=== PATIENT | female | born 1975 | race Caucasian/White ===

== ENCOUNTER → 2023-10-14 14:34 | Outpatient (REF) | payer OTHER, SELFPAY | LOC: WDC 14:34 | PROVIDERS: ATTENDING PHYSICIAN Nurse Practitioner Family | DX: Z12.31 Encounter for screening mammogram for malignant neoplasm of breast (principal); R92.8 Other abnormal and inconclusive findings on diagnostic imaging of breast | CPT/HCPCS: 76642; 77063; 77067 ==

== ENCOUNTER → 2023-11-29 16:34 | Outpatient (REF) | payer OTHER, SELFPAY | LOC: RAD 16:34 | PROVIDERS: ATTENDING PHYSICIAN Nurse Practitioner Family | DX: M25.531 Pain in right wrist (principal); M79.674 Pain in right toe(s) | CPT/HCPCS: 73110; 73660 ==

== ENCOUNTER → 2024-10-17 18:59 | Outpatient (REF) | payer OTHER, SELFPAY | LOC: WDC 18:59 | PROVIDERS: ATTENDING PHYSICIAN Obstetrics & Gynecology Obstetrics; FAMILY PHYSICIAN Nurse Practitioner Family | DX: Z12.31 Encounter for screening mammogram for malignant neoplasm of breast (principal) | CPT/HCPCS: 77063; 77067 ==

== ENCOUNTER → 2024-11-01 08:48 | Outpatient (REF) | payer OTHER, SELFPAY | LOC: WDC 08:48 | PROVIDERS: ATTENDING PHYSICIAN Obstetrics & Gynecology Obstetrics; FAMILY PHYSICIAN Nurse Practitioner Family | DX: R92.8 Other abnormal and inconclusive findings on diagnostic imaging of breast (principal) | CPT/HCPCS: 76642 ==

== ENCOUNTER 2024-12-11 18:03 | Emergency (ER) | payer OTHER, SELFPAY ==
[2024-12-11 18:05] VITALS: BP 122/74
--- NOTE | 2024-12-11 20:12 | ED.SKININJ ---
HPI-Injury
General
Chief Complaint: Skin Surface Trauma
Source: patient
Exam Limitations: none
Time Seen by Provider: 12/11/24 19:37
History of Present Illness-Injury
Initial Injury comments:
49-year-old female presents with laceration to left index finger she sustained today. She was cutting onions with a brand-new knife and cut her finger. She states she cut the tip of her finger off. She was having difficulty getting it to stop
bleeding at home. Last tetanus was 9 years ago. No other complaints
Phy Exam
Physical Exam
Physical Exam:
General: Well-appearing female no acute respiratory distress
Skin: 1 cm avulsion type laceration distal radial aspect left index finger. The radial aspect of the nail is involved as well. Mild bleeding from the wound no bony involvement
Musculoskeletal exam: Good range of motion left index finger
Course
Orders/Labs/Results
Orders:
Orders
12/11/24 20:12
Tetanus/Diphth/Acelpertussis [Adacel] 0.5 ml IM .ONCE ONE
Vital Signs
Initial and Last Documented VS:
Initial Vital Signs
Temp Pulse Resp BP Pulse Ox
98.0 F 75 16 122/74 99
12/11/24 18:05 12/11/24 18:05 12/11/24 18:05 12/11/24 18:05 12/11/24 18:05
Last Documented Vital Signs
Temp Pulse Resp BP Pulse Ox
98.0 F 75 16 122/74 99
12/11/24 18:05 12/11/24 18:05 12/11/24 18:05 12/11/24 18:05 12/11/24 18:05
MDM/Problems Addressed
Differential Diagnosis Includes:
Avulsion laceration distal left index finger with nail involvement. No bony involvement. The finger was irrigated with saline. The finger was anesthetized in a local fashion using 1% lidocaine a finger tourniquet was applied just for a couple
minutes to provide hemostasis and the area was cauterized with silver nitrate. This was let this set in. Subsequently a sterile nonstick gauze dressing was applied with a gauze wrap. Tetanus updated. Wound care instructions were given stable for
discharge
*Critical Care Note
Total Time (30-74mins, 75-104mins- exclusive of procedures): Not Applicable
ED Attending Note
-
Portions of this chart may have been created with voice recognition software.� Occasional wrong word or��sound alike� substitutions may have occurred due to the inherent limitations of voice recognition software.
Discharge Plan
Departure
Patient Disposition: Home (Routine Discharge)
Date of Disposition: 12/11/24
Time of Disposition: 20:14
Patient with high blood pressure during this ER visit?: No
Discharge Problem:
Laceration
Instructions: Wound Care (DC)
Referrals:
Graciela Lugo MD [Family Provider, [facility]]
Activity Restrictions/Additional Instructions:
Change dressing as needed. Use Ibuprofen or Tylenol if needed for pain. Return if needed otherwise
Interventions
Interventions:
*Risk Screen - Suicide Last Done: 12/11/24 18:05
*General Assessment Last Done: 12/11/24 18:47
*Neglect/Abuse Screening Last Done: 12/11/24 18:39
*ED- Fall Risk Assessment Last Done: 12/11/24 18:39
*ED COVID-19 Vaccine History Last Done: 12/11/24 18:39
ED-Skin Assessment Last Done: 12/11/24 18:39
Discharge Date and Time
Print Language: BENGALI
[2024-12-11] MEDS: ADACEL 0.5 ML IM (20:15)
== END 2024-12-11 20:23 | disposition home or self-care (01) ==
LOC: EMR 18:03
PROVIDERS: EMERGENCY PHYSICIAN Student in an Organized Health Care Education/Training Program; FAMILY PHYSICIAN Family Medicine
DX: S61.311A Laceration without foreign body of left index finger with damage to nail, initial encounter (principal); W26.0XXA Contact with knife, initial encounter; Z23 Encounter for immunization
CPT/HCPCS: 90471; 99282; 90715

== ENCOUNTER 2024-12-13 08:52 | Emergency (ER) | payer OTHER, SELFPAY ==
[2024-12-13 08:54] VITALS: BP 114/82
--- NOTE | 2024-12-13 12:09 | ED.GENMED ---
History of Present Illness
General
Chief Complaint: Skin Surface Trauma
Source: patient
Exam Limitations: none
Time Seen by Provider: 12/13/24 10:38
Nursing documentation reviewed up to this point in time: agreed with
History of Present Illness
History of Present Illness:
The patient is a 49-year-old female who presents to the emergency department for evaluation of wound check/persistent bleeding from avulsion of left index finger which occurred 2 days ago. Patient states that she accidentally cut her finger with a
kitchen knife 2 days ago. She was seen in the emergency department at that time where wound was cleaned, cauterized with silver nitrate and a pressure dressing was applied. Patient states she removed the initial dressing yesterday and there was
minimal bleeding. She gently wash wound and reapplied a bandage. Today�she states wound was continuing to bleed through dressing prompting return to the emergency department.
Patient does report pain in affected finger for which she is taking Tylenol and Motrin.
Patient denies any numbness/tingling in affected finger. No fevers or chills.
Review of Systems
Review of Systems
Allergies reviewed?: Yes
All Other Systems: ROS reviewed and negative except as documented in HPI and ROS
Phy Exam
Physical Exam
Physical Exam:
Vitals: Patient's vital signs are stable. Afebrile
General: Patient is well appearing, no acute distress
Skin: Approximately 1 cm avulsion injury to distal left index finger at radial aspect with charred tissue w/ black crust. Few small areas of pinpoint minimal bleeding. Involvement of radial aspect of nail, as well. No surrounding erythema or
evidence of cellulitis.
Head: Normocephalic, atraumatic
Throat: Protecting airway
Neck: Normal ROM, no cervical spine tenderness
Cardiac: Regular rate
Pulm: No apparent respiratory distress
Abdomen: Nondistended
Extremities: Good ROM in left second digit
Neuro: Grossly intact
Psychiatric: Normal affect.
Course
Vital Signs
Initial and Last Documented VS:
Initial Vital Signs
Temp Pulse Resp BP Pulse Ox
98.1 F 70 16 114/82 100
12/13/24 08:54 12/13/24 08:54 12/13/24 08:54 12/13/24 08:54 12/13/24 08:54
Last Documented Vital Signs
Temp Pulse Resp BP Pulse Ox
98.1 F 70 16 114/82 100
12/13/24 08:54 12/13/24 08:54 12/13/24 08:54 12/13/24 08:54 12/13/24 08:54
MDM/Problems Addressed
Differential Diagnosis Includes:
Not limited to: Avulsion injury, wound check, etc.
MDM/Problems Addressed:
49-year-old female presenting for wound check of left second digit avulsion injury which occurred two days ago. She reports bleeding through bandage at home. Patient seen in ED two days ago where wound was irrigated and cauterized w/ silver nitrate
and pressure dressing applied.
Vitals and physical exam as above.
Avulsion injury to distal left second digit with nail involvement noted. Previously cauterized area with very minimal oozing blood. No surrounding erythema, drainage or findings of cellulitis. Wound was irrigated again in emergency department with
normal saline. Small areas of oozing were cauterized once again with silver nitrate.
Patient was monitored in the emergency department briefly without evidence of rebleed. Pressure bandage applied using surgifoam as additional hemostasis technique.
Wound care instructions discussed with patient. Return production discussed. Stable for discharge home.
Chronic conditions affecting care:
N/A
Acute Exacerbation and/or Progression of Chronic Illness:
N/A
*Pulse Oximetry
Patient hypoxic: no
*EKG
Interpreted by ED Provider?: NA
*Calender Tender Interpretation
Rate: Calender Tender- N/A
*Critical Care Note
Total Time (30-74mins, 75-104mins- exclusive of procedures): Not Applicable
Data Reviewed
Review of Other/Old Records Reveals: Discharge Summary (ED visit from 12/11/2024-laceration cleansed and hemostasis obtained via lido with epi and silver nitrate cautery)
ED Attending Note
-
Portions of this chart may have been created with voice recognition software.� Occasional wrong word or��sound alike� substitutions may have occurred due to the inherent limitations of voice recognition software.
Discharge Plan
Departure
Patient Disposition: Home (Routine Discharge)
Date of Disposition: 12/13/24
Time of Disposition:
Patient with high blood pressure during this ER visit?: No
Condition: Good
Discharge Problem:
Encounter for wound re-check
Instructions: Wound Care (DC), Nail Avulsion (DC)
Referrals:
Graciela Lugo MD [Family Provider, [facility]] - Follow up in 1 week
Activity Restrictions/Additional Instructions:
RETURN TO THE EMERGENCY DEPARTMENT WITH ANY BLEEDING FROM AFFECTED FINGER THAT WILL NOT STOP AT HOME, OR ANY SIGNS OF INFECTION INCLUDING FEVER, CHILLS, WORSENING SWELLING OR REDNESS AROUND WOUND, NUMBNESS/TINGLING AFFECTED FINGER, OR ANY OTHER
CONCERNS
- As discussed�a small amount of silver nitrate was applied to your avulsion injury while in the emergency department. Wound was redressed with Surgicel and a pressure bandage. Keep current dressing on for the next 24 hours. You should continue
to wash gently with soap and water daily and change dressing.
- You can apply ice and take Tylenol/Motrin as needed for pain.
- Follow-up with your primary care for wound check in a week and to ensure that he continues to heal well.
Monitor your symptoms very closely return to the emergency department with any acute worsening/new symptoms or any signs of infection
Interventions
Interventions:
*Risk Screen - Suicide Last Done: 12/13/24 08:54
*General Assessment Last Done: 12/13/24 11:58
*Neglect/Abuse Screening Last Done: 12/13/24 08:54
*ED- Fall Risk Assessment Last Done: 12/13/24 11:58
*ED COVID-19 Vaccine History Last Done: 12/13/24 11:58
*Nursing Disposition Last Done: 12/13/24 12:05
ED-Skin Assessment Last Done: 12/13/24 11:58
Discharge Date and Time
Discharge Date/Time: 12/13/24 12:05
Print Language: CHADIAN
== END 2024-12-13 12:05 | disposition home or self-care (01) ==
LOC: EMR 08:52
PROVIDERS: EMERGENCY PHYSICIAN Emergency Medicine; FAMILY PHYSICIAN Family Medicine
DX: Z48.00 Encounter for change or removal of nonsurgical wound dressing (principal)
CPT/HCPCS: 99282

== ENCOUNTER 2025-05-07 18:33 | Emergency (ER) | payer OTHER, SELFPAY ==
[2025-05-07 18:35] VITALS: BP 126/69
[2025-05-07] MEDS: ZOFRAN 4 MG IV ×2 (18:57→19:42)
[2025-05-07] MEDS: TORADOL 30 MG IV (18:58)
[2025-05-07 19:01] LABS: Hematocrit 39.6 % (37.0-47.0); Hemoglobin 13.3 g/dL (12.0-16.0); Mean Corp Hgb Conc. 33.6 g/dL (33.0-37.0); Mean Corpuscular Volume 85.9 fL (81.0-99.0); Nucleated Red Blood Cells % 0 %; Platelet Count 194 10^3/uL (130-400); Red Cell Dist. Width 12.5 % (11.5-14.5)
[2025-05-07 19:07] VITALS: BP 104/60
[2025-05-07 19:08] VITALS: BMI 23.9
[2025-05-07 19:10] LABS: HCG, Serum Qualitative Screen Negative
[2025-05-07 19:20] LABS: ALT (SGPT) 31 U/L (0-35); AST (SGOT) 31 U/L (14-36); Albumin 4.7 g/dl (3.5-5.0); Alkaline Phosphatase 62 U/L (38-126); Blood Urea Nitrogen 23 mg/dl (7-17); Calcium 9.7 mg/dl (8.4-10.2); Carbon Dioxide 20 mmol/L (22-30); Chloride 103 mmol/L (98-107); Estimated Creatinine Clearance 65 ml/min; Glucose 137 mg/dl (70-99); Lipase 152 U/L (23-300); Potassium 3.5 mmol/L (3.5-5.1); Sodium 136 mmol/L (135-145); Total Protein 7.6 g/dl (6.3-8.2); eGFR > 60.00
--- NOTE | 2025-05-07 19:31 | ED.GENMED ---
History of Present Illness
General
Chief Complaint: Flank Pain
Source: patient and spouse
Exam Limitations: none
Time Seen by Provider: 05/07/25 19:24
Nursing documentation reviewed up to this point in time: agreed with
History of Present Illness
History of Present Illness:
50-year-old female with no significant past medical history is here for left flank and abdominal pain. She states her stomach was bothering her at 230 this afternoon, she started vomiting at 330 as the pain in her left-sided back increased, she had
several episodes of nausea and vomiting and the pain was 10/10. When she arrived here she was very uncomfortable and was given Toradol and Zofran in triage. At this first encounter, she states she is feeling 'much better' and the pain is 2/10.
She denies fever but did feel chills and was shaking when she first arrived.
Past History
Past History
ED Past Medical History: None
ED Past Surgical History:
Social History
Tobacco: Non-smoker
Alcohol: None
Personal:
Living: with family
Employment: Employed
Review of Systems
Review of Systems
Allergies reviewed?: Yes
All Other Systems: ROS reviewed and negative except as documented in HPI and ROS
Phy Exam
Physical Exam
Physical Exam:
GENERAL: No acute distress. A&Ox3.
CONSTITUTIONAL: Afebrile.
EYES: clear, conjunctivae normal
ENMT: moist mucus membranes
RESPIRATORY: Regular respirations, nonlabored, lungs clear.
CARDIOVASCULAR: Regular rate and rhythm, no murmurs, no rubs.
GI: Soft, nontender, normal BS. Left flank tender to percussion
MUSCULOSKELETAL: Moves with ease. Well perfused.
SKIN: Warm, dry, pink
PSYCH: Normal mood and affect. Well kept, interactive and appropriate
NEUROLOGIC: Awake, alert and oriented. No focal neurological deficits
Course
Orders/Labs/Results
Orders:
Orders
05/07/25 18:42
Test Result ONCE
05/07/25 18:49
Complete Blood Count/With Diff Urgent
Comprehensive Metabolic Panel Urgent
HCG, Serum Qualitative Screen Urgent
Lactate Level [Lactic Acid] Urgent
Lipase Urgent
05/07/25 18:54
Ketorolac [Toradol] 30 mg .ROUTE .STK-MED ONE
Ondansetron Injectable [Zofran] 4 mg .ROUTE .STK-MED ONE
05/07/25 18:57
Ondansetron Injectable [Zofran] 4 mg IV NOW STA
05/07/25 18:58
Ketorolac [Toradol] 30 mg IV NOW STA
05/07/25 19:28
Urinalysis Reflex To Culture Urgent
Date Specimen was Collected: 05/07/25
Time Specimen was Collected: 19:27
Urine Microscopic Reflex Cult Urgent
Urine Culture Urgent
KYLEE Source: U
Specimen Description:
Date Specimen was Collected: 05/07/25
Time Specimen was Collected: 19:27
05/07/25 19:31
HYDROmorphone [Dilaudid] 1 mg IV NOW STA
Ondansetron Injectable [Zofran] 4 mg IV NOW STA
05/07/25 19:34
CT Abd/pel Without Iv Or Oral Urgent
Comment:
Reason For Exam: Left flank and abdominal pain
05/07/25 19:36
0.9% Sodium Chloride 1000 ml [Nss] 1,000 ml IV BOLUS
05/07/25 21:36
Tamsulosin [Flomax] 0.4 mg PO NOW STA
05/07/25 21:42
Hydrocodone 5/APAP 325 [[place] 5/325] 1 tablet PO NOW STA
Abnormal Lab Results
05/07/25 05/07/25
18:49 19:28
WBC 12.0 H 10^3/uL
(4.8-10.8)
MPV 12.1 H fL
(7.4-10.4)
Abs Immat Gran (auto) 0.1 H 10^3/uL
(0-0.05)
Absolute Neuts (auto) 8.4 H 10^3/uL
(1.4-6.5)
Absolute Monos (auto) 1.2 H 10^3/uL
(0.1-0.6)
Lymphocytes % 17.3 L %
(20.5-51.1)
Monocytes % 9.8 H %
(1.7-9.3)
Carbon Dioxide 20 L mmol/L
(22-30)
BUN 23 H mg/dl
(7-17)
Glucose 137 H mg/dl
(70-99)
Lactic Acid 5.8 H* mmol/L
(0.7-2.0)
Urine Ketones 3+ A
(Negative)
Ur Occult Blood Reflex 4+ A
(Negative)
Leukocyte Esterase Rfl 1+ A
(Negative)
Urine RBC >100 A /HPF
(0-2)
Urine Bacteria (Reflex) Few A
(Negative)
Urine Albumin (Reflex) 3+ A
(Neg - Trace)
05/07/25 18:49
05/07/25 18:49
Vital Signs
Initial and Last Documented VS:
Initial Vital Signs
Temp Pulse Resp BP Pulse Ox
98.2 F 75 20 126/69 98
05/07/25 18:35 05/07/25 18:35 05/07/25 18:35 05/07/25 18:35 05/07/25 18:35
Last Documented Vital Signs
Temp Pulse Resp BP Pulse Ox
98.2 F 75 20 104/60 99
05/07/25 18:35 05/07/25 18:35 05/07/25 18:35 05/07/25 19:07 05/07/25 21:45
Tire Trimmer Hand consulted with Physician
Tire Trimmer Hand consulted with physician?: Yes
Name of Physician Consulted: Jeni
MDM/Problems Addressed
Differential Diagnosis Includes:
Kidney stone, ureter stone, UTI, pyelonephritis
MDM/Problems Addressed:
50-year-old female with no significant past medical history is here for left flank and abdominal pain. She states her stomach was bothering her at 230 this afternoon, she started vomiting at 330 as the pain in her left-sided back increased, she had
several episodes of nausea and vomiting and the pain was 10/10. When she arrived here she was very uncomfortable and was given Toradol and Zofran in triage. At this first encounter, she states she is feeling 'much better' and the pain is 2/10.
She denies fever but did feel chills and was shaking when she first arrived.
7:30 PM:
As we are talking patient states pain is getting worse, 5/10, she is nauseous and starting to vomit. Pain medicine ordered
CBC: WBC 12.0
CMP: No clinically significant abnormality
Lactic acid: 5.8
UA with no infection
Abdomen CT pending
9:30 p.m.
Pt remains comfortable, some mild discomfort in the left flank and left abdomen area
Elevated Lactic acid most likely from hyperventilating and significant pain on arrival
CT abd pelvis plain radiology report read: IMPRESSION:
4.4 mm distal left ureteral calculus with mild to moderate obstructive uropathy.
Moderate colonic fecal burden.
L5-S1 degenerative disc disease with small disc protrusion.
Plan: Flomax, strain urine, rx for Vicodin and Zofran sent to her pharmacy, Urology referral given. Return instructions reviewed.
Case discussed with Dr. Ngo who agrees with assessment and plan
*Pulse Oximetry
SaO2: 100
Oxygen Mode of Delivery: Room air
Patient hypoxic: no
*Critical Care Note
Total Time (30-74mins, 75-104mins- exclusive of procedures): Not Applicable
ED Attending Note
-
Portions of this chart may have been created with voice recognition software.� Occasional wrong word or��sound alike� substitutions may have occurred due to the inherent limitations of voice recognition software.
Discharge Plan
Departure
Patient Disposition: Home (Routine Discharge)
Date of Disposition: 05/07/25
Time of Disposition: 21:43
Patient with high blood pressure during this ER visit?: No
Condition: Good
Discharge Problem:
Calculus of distal left ureter
Instructions: Kidney Stones (DC), How to Strain Your Urine, Narcotic Pain Medication
Prescriptions:
New
tamsulosin [Flomax] 0.4 mg capsule
0.4 mg PO DAILY Qty: 4 0RF
hydrocodone-acetaminophen 5-325 mg tablet
1 tab PO Q6H PRN (Reason: Pain) Qty: 7 0RF
ondansetron 4 mg tablet,disintegrating
4 mg PO Q8H PRN (Reason: nausea and vomiting) 4 Days Qty: 10 0RF
Referrals:
Semaj Moore MD [Active, Urology] - Call in 1-3 days for appt
Graciela Lugo MD [Family Provider, Family Practice]
Activity Restrictions/Additional Instructions:
As we discussed, ibuprofen 600 mg as needed for mild to moderate pain and use the hydrocodone ([place]) if needed for worse pain.
I sent a prescription to your pharmacy for hydrocodone and Zofran to use as needed. Take the Flomax daily starting tomorrow you were given a dose here today. If you pass the stone you do not have to continue the Flomax
Return here immediately for fever, vomiting, worsening pain despite the medications or feeling sicker in any way.
Call tomorrow and make appointment with the Urologist
Interventions
Interventions:
*Risk Screen - Suicide Last Done: 05/07/25 18:35
*General Assessment Last Done: 05/07/25 19:08
*Neglect/Abuse Screening Last Done: 05/07/25 18:35
*ED- Fall Risk Assessment Last Done: 05/07/25 19:08
*ED COVID-19 Vaccine History Last Done: 05/07/25 19:08
*ED Influenza Vaccine History Last Done: 05/07/25 19:08
*Nursing Disposition Last Done: 05/07/25 22:00
QA-Cjijma-Icpngdfast Assessment Last Done: 05/07/25 19:08
ED-Female Genitourinary Assessment Last Done: 05/07/25 19:08
Discharge Date and Time
Discharge Date/Time: 05/07/25 22:01
Print Language: GREEK
[2025-05-07 19:34] LABS: Urine Character Cloudy (Clear)
[2025-05-07] MEDS: DILAUDID 1 MG IV (19:42)
[2025-05-07] MEDS: NSS 1000 IV (19:42)
[2025-05-07 19:43] LABS: Urine Red Blood Cell >100 /HPF (0-2)
[2025-05-07] MEDS: FLOMAX 0.4 MG PO (21:42)
[2025-05-07] MEDS: NORCO 5/325 1 TABLET PO (21:46)
== END 2025-05-07 22:01 | disposition home or self-care (01) ==
LOC: EMR 18:33
PROVIDERS: Registered Nurse; Student in an Organized Health Care Education/Training Program; EMERGENCY PHYSICIAN Emergency Medicine; FAMILY PHYSICIAN Family Medicine
DX: N13.2 Hydronephrosis with renal and ureteral calculous obstruction (principal); E87.20 Acidosis, unspecified; M51.27 Other intervertebral disc displacement, lumbosacral region; M51.379 Other intervertebral disc degeneration, lumbosacral region without mention of lumbar back pain or lower extremity pain
CPT/HCPCS: 99284; 96374; 96375 ×2; 96376; 96361; 74176; 80053; 81003; 81015; 83605; 83690; 84703; 85025; 87086